=== PATIENT | male | born 1955 | race Asian ===

== ENCOUNTER 2022-12-29 15:03 | Emergency (ER) | payer OTHER ==
[~2022-12-29] VITALS: Ht 170.2 cm; Wt 76.4 kg
[2022-12-29 15:20] VITALS: BP 98/69
[2022-12-29] MEDS ORDERED: TETRACAINE HCL 0.5% OPTH(EYE) SOLN 4ML RIGHTEYE ONE (17:30)
== END 2022-12-29 18:12 | disposition home or self-care (01) ==
LOC: ER 15:03
DX: T15.91XD Foreign body on external eye, part unspecified, right eye, subsequent encounter (principal); X58.XXXD Exposure to other specified factors, subsequent encounter

== ENCOUNTER 2023-11-09 13:26 | Emergency (ER) | payer MEDICARE, OTHER ==
[~2023-11-09] VITALS: Ht 170.2 cm; Wt 73.6 kg
[2023-11-09 16:15] VITALS: BP 120/66; PULSE 83; RESP 18; TEMP 97.9; O2SAT 95
[2023-11-09] MEDS ORDERED: MELO-335 PO (16:26)
[2023-11-09] MEDS ORDERED: GABA-1308 PO (16:26)
[2023-11-09] MEDS ORDERED: methylPREDNISolone SOD SUCC 125 MG/2 ML VL IM ONE (16:30)
== END 2023-11-09 16:48 | disposition home or self-care (01) ==
LOC: ER 13:26
DX: M54.41 Lumbago with sciatica, right side (principal); Z88.6 Allergy status to analgesic agent
CPT/HCPCS: 96372; 99284; J2930